=== PATIENT | female | born 1990 | race American Indian/Alaskan Native ===

== ENCOUNTER 2016-10-28 18:42 | Emergency (ER) | payer MEDICAID, OTHER ==
[2016-10-28 18:42] VITALS: BMI 24.5
[2016-10-28 18:55] VITALS: BP 113/72; PULSE 82; TEMP 98.7; O2SAT 100
--- NOTE | 2016-10-28 19:19 | C.PDOC ---
History Of Present Illness 26 y/o female c/o rash to arms, abdomen, back and left buttock x 8 days; pt sts it is itchy on arms only. pt sts no one else in home has similar rash, and she has not seen any insects in home or bed. Pt denies fever and chills. Time Seen by Provider: 10/28/16 18:59 Chief Complaint (Nursing): Abnormal Skin Integrity History Per: Patient History/Exam Limitations: no limitations Onset/Duration Of Symptoms: Days Current Symptoms Are (Timing): Still Present Quality Of Symptoms: Itching (Arms only) Severity: Mild Recent travel outside of the [place]: No Additional History Per: Patient Past Medical History Reviewed: Historical Data, Nursing Documentation, Vital Signs Vital Signs: Last Vital Signs Temp 98.7 F 10/28/16 18:52 Pulse 82 10/28/16 18:52 Resp 20 10/28/16 19:29 BP 113/72 10/28/16 18:52 Pulse Ox 100 10/29/16 00:39 - Medical History PMH: Denies: Chronic Kidney Disease - [facility] Procedures BARTHOLIN GLAND MARSUP (11/14/14) INCISE BARTHOLIN'S GLAND (11/11/14) TETANUS TOXOID ADMINIST (10/07/13) Family History: States: Unknown Family Hx - Social History Hx Tobacco Use: No Hx Alcohol Use: No Hx Substance Use: No - Immunization History Hx Tetanus Toxoid Vaccination: No Hx Influenza Vaccination: No Hx Pneumococcal Vaccination: No Review Of Systems Except As Marked, All Systems Reviewed And Found Negative. Constitutional: Negative for: Fever, Chills Skin: Positive for: Rash (Arms, abdomen, back, and left buttock) Physical Exam - Physical Exam Appears: Non-toxic, No Acute Distress Skin: Normal Color, Warm, Dry, Rash (diffuse scattered papules, some with umbilicated centers to anterior arms, bilaterally, lower abdomen, right buttock , many papyules have been excoriated, with scars, no surrounding erythema or warmth. ) Nose: Normal Oral Mucosa: Moist Tongue: Normal Appearing Chest: Symmetrical, No Tenderness Cardiovascular: Rhythm Regular, No Murmur Respiratory: Normal Breath Sounds, No Rales, No Rhonchi, No Wheezing Gastrointestinal/Abdominal: Soft, No Tenderness Neurological/Psych: Oriented x3, Normal Speech, Normal Cognition ED Course And Treatment O2 Sat by Pulse Oximetry: 100 (RA) Pulse Ox Interpretation: Normal Medical Decision Making Medical Decision Making: Impression: 26y/o female c/o rash to the arms, abdomen, back, and left buttock for 8 days Plans: -Reassess and disposition Disposition - Disposition Referrals: [facility] [Outside] Disposition: HOME/ ROUTINE Disposition Time: 19:19 Condition: STABLE Additional Instructions: Follow up with your primary care doctor and with a music education adjunct professor. Call [facility] for help finding a music education adjunct professor. Try to avoid scratching at lesions and then touching self elsewhere; this can cause new bumps to appear. .Return to ER for any worsening symptoms. Instructions: Molluscum Contagiosum (ED) Forms: General Discharge Instructions - Clinical Impression Clinical Impression: Mollusca contagiosa - Scribe Statement The provider has reviewed the documentation as recorded by the Nicolaibjarod carrera All medical record entries made by the Nicolaibjarod were at my direction and personally dictated by me. I have reviewed the chart and agree that the record accurately reflects my personal performance of the history, physical exam, medical decision making, and the department course for this patient. I have also personally directed, reviewed, and agree with the discharge instructions and disposition.
[2016-10-28 19:30] VITALS: RESP 20
== END 2016-10-28 19:29 | disposition home or self-care (01) ==
LOC: C.ER 18:42
DX: B08.1 Molluscum contagiosum (principal)

== ENCOUNTER 2017-01-09 13:54 | Emergency (ER) | payer MEDICAID ==
[2017-01-09 14:08] VITALS: BMI 26.6
[2017-01-09 14:13] VITALS: BP 110/72; PULSE 94; RESP 17; TEMP 98.3; O2SAT 99
[2017-01-09] MEDS ORDERED: Tetracaine 0.5% Ophth (OR ONLY) ONE (14:30)
[2017-01-09] MEDS ORDERED: Fluorescein 1 mg Ophthalmic Strip ONE (14:30)
[2017-01-09] MEDS ORDERED: Fluorescein 1 mg Ophthalmic Strip OS ONE (15:11)
[2017-01-09] MEDS ORDERED: Tetracaine 0.5% Ophth 2 ML BOTTLE OS ONE (15:12)
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
== END 2017-01-09 15:52 | disposition home or self-care (01) ==
LOC: C.ER 13:54
DX: S05.02XA Injury of conjunctiva and corneal abrasion without foreign body, left eye, initial encounter (principal); Y04.0XXA Assault by unarmed brawl or fight, initial encounter

== ENCOUNTER 2017-08-25 17:02 | Emergency (ER) | payer MEDICAID, OTHER ==
[2017-08-25 17:16] VITALS: TEMP 98.3; BMI 30.1
--- NOTE | 2017-08-25 17:54 | C.PDOC ---
History Of Present Illness 27yo female, presents to ED with complaints of left buttock and thigh pain for the past week. Pt notes " I pulled my hamstring". She reports she was dancing when she first felt the pain. Patient took Ibuprofen once when the symptoms started but has not taken anything since. She denies any direct trauma, weakness , numbness. She also denies any bowel or bladder dysfunction. Denies lower leg pain or swelling. No sob. Time Seen by Provider: 08/25/17 17:26 Chief Complaint (Nursing): Lower Extremity Problem/Injury History Per: Patient History/Exam Limitations: no limitations Onset/Duration Of Symptoms: Days Current Symptoms Are (Timing): Still Present Past Medical History Reviewed: Historical Data, Nursing Documentation, Vital Signs Vital Signs: Last Vital Signs Temp 98.3 F 08/25/17 17:16 Pulse 84 08/25/17 18:12 Resp 18 08/25/17 18:12 BP 125/82 08/25/17 18:12 Pulse Ox 100 08/25/17 18:18 - Medical History PMH: No Chronic Diseases Denies: Chronic Kidney Disease Surgical History: No Surg Hx - [facility] Procedures BARTHOLIN GLAND MARSUP (11/14/14) INCISE BARTHOLIN'S GLAND (11/11/14) TETANUS TOXOID ADMINIST (10/07/13) Family History: States: Unknown Family Hx - Social History Hx Tobacco Use: No Hx Alcohol Use: No Hx Substance Use: No - Immunization History Hx Tetanus Toxoid Vaccination: No Hx Influenza Vaccination: No Hx Pneumococcal Vaccination: No Review Of Systems Except As Marked, All Systems Reviewed And Found Negative. Musculoskeletal: Positive for: Back Pain Neurological: Negative for: Weakness, Numbness Physical Exam - Physical Exam Appears: Non-toxic, No Acute Distress Skin: Normal Color, Warm, Dry Head: Normacephalic Eye(s): bilateral: Normal Inspection, EOMI Nose: Normal Oral Mucosa: Moist Neck: Normal ROM, Supple Chest: Symmetrical Respiratory: No Accessory Muscle Use Gastrointestinal/Abdominal: Soft, No Tenderness Back: No CVA Tenderness, No Vertebral Tenderness, Other (tenderness to left buttock) Extremity: Normal ROM, Tenderness (tenderness to left posterior thigh), No Pedal Edema, No Calf Tenderness Pulses: Left Dorsalis Pedis: Normal, Right Dorsalis Pedis: Normal Neurological/Psych: Oriented x3, Normal Motor, Normal Sensation Gait: Steady ED Course And Treatment O2 Sat by Pulse Oximetry: 100 (RA) Pulse Ox Interpretation: Normal Progress Note: Patient given Flexeril and Toradol with improvement of pain. Patient given instructions to follow up with PCP. Disposition - Disposition Disposition: HOME/ ROUTINE Disposition Time: 18:02 Condition: STABLE Additional Instructions: Follow up with your primary medical doctor or clinic in 2-5 days for further evaluation. Take medications as prescribed. Return to the emergency department at any time if symptoms persist or worsen. Prescriptions: Cyclobenzaprine [Cyclobenzaprine HCl] 10 mg PO TID #20 tab Naproxen [Naprosyn] 1 tab PO BID PRN #20 tab PRN Reason: Pain Instructions: Muscle Strain Forms: [employer] (Beninese) - Clinical Impression Clinical Impression: Muscle strain - PA / SHOEMAKER APPRENTICE / Resident Statement MD/DO has reviewed & agrees with the documentation as recorded. - Scribe Statement The provider has reviewed the documentation as recorded by the Scribe (Kendra Duncan) Provider Scribe Attestation: All medical record entries made by the Scribe were at my direction and personally dictated by me. I have reviewed the chart and agree that the record accurately reflects my personal performance of the history, physical exam, medical decision making, and the department course for this patient. I have also personally directed, reviewed, and agree with the discharge instructions and disposition.
[2017-08-25 18:13] VITALS: BP 125/82; PULSE 84; RESP 18
[2017-08-25 18:17] VITALS: O2SAT 100
== END 2017-08-25 18:13 | disposition home or self-care (01) ==
LOC: C.ER 17:02
DX: S76.912A Strain of unspecified muscles, fascia and tendons at thigh level, left thigh, initial encounter (principal); X50.0XXA Overexertion from strenuous movement or load, initial encounter; Y92.9 Unspecified place or not applicable
CPT/HCPCS: 96372; 99283; J1885

== ENCOUNTER 2018-03-06 19:33 | Emergency (ER) | payer SELFPAY ==
[2018-03-06 19:34] VITALS: BMI 30.1
[2018-03-06 19:54] VITALS: BP 119/76; PULSE 82; RESP 16; TEMP 98.9; O2SAT 98
[2018-03-06 20:13] LABS: SQUAMOUS EPITHIAL < 1 /hpf (0-5); URINE BACTERIA OCC (<OCC); URINE BILIRUBIN NEGATIVE (NEGATIVE); URINE BLOOD 1+ (NEGATIVE); URINE CLARITY Hazy (Clear); URINE COLOR Yellow (YELLOW); URINE GLUCOSE (UA) NORMAL (Normal); URINE LEUKOCYTE ESTERASE 3+ Leu/uL (Negative); URINE PROTEIN 2+ mg/dL (NEGATIVE); URINE UROBILINOGEN NORMAL mg/dL (0.2-1.0); WBC CLUMPS FEW /hpf
--- NOTE | 2018-03-06 20:34 | C.PDOC ---
History Of Present Illness 28 yo female c/o urinary frequency for one week. Denies dysuria, back pain, vaginal discharge, abdominal pain, fever, or n/v. Pt notes that she is on her menses. Verbalizes no concern for STDs. Time Seen by Provider: 03/06/18 20:13 Chief Complaint (Nursing): Female Genitourinary History Per: Patient History/Exam Limitations: no limitations Onset/Duration Of Symptoms: Days Current Symptoms Are (Timing): Still Present Past Medical History Vital Signs: Last Vital Signs Temp 98.9 F 03/06/18 19:51 Pulse 82 03/06/18 19:51 Resp 16 03/06/18 19:51 BP 119/76 03/06/18 19:51 Pulse Ox 98 03/06/18 19:51 - Medical History PMH: Denies: Chronic Kidney Disease - [facility] Procedures BARTHOLIN GLAND MARSUP (11/14/14) INCISE BARTHOLIN'S GLAND (11/11/14) TETANUS TOXOID ADMINIST (10/07/13) Family History: States: Unknown Family Hx - Social History Hx Tobacco Use: No Hx Alcohol Use: No Hx Substance Use: No - Immunization History Hx Tetanus Toxoid Vaccination: No Hx Influenza Vaccination: No Hx Pneumococcal Vaccination: No Review Of Systems Except As Marked, All Systems Reviewed And Found Negative. Genitourinary: Positive for: Frequency Physical Exam - Physical Exam Appears: Well, Non-toxic, No Acute Distress Skin: Normal Color, Warm, Dry Head: Atraumatic, Normacephalic Eye(s): bilateral: Normal Inspection, EOMI Nose: Normal Oral Mucosa: Moist Neck: Normal, Normal ROM, Supple Chest: Symmetrical Respiratory: No Accessory Muscle Use Gastrointestinal/Abdominal: Normal Exam, Soft, No Tenderness Back: Normal Inspection, No CVA Tenderness, No Vertebral Tenderness Extremity: Normal ROM Neurological/Psych: Oriented x3, Normal Speech ED Course And Treatment O2 Sat by Pulse Oximetry: 98 Progress Note: UA indicated UTI. Macrobid ordered. Urine culture sent. Instructed to follow up with the PMD in 1-2 days. Disposition - Disposition Disposition: HOME/ ROUTINE Disposition Time: 20:33 Condition: STABLE Additional Instructions: Follow with your GRADUATE STUDENT in 1-2 days. Return to ER if symptoms persist or worsen. Prescriptions: Nitrofurantoin Macrocrystals [Macrobid] 1 cap PO BID #14 cap Instructions: Urinary Tract Infection, Adult (DC) Forms: [employer] (Latvian) - Clinical Impression Clinical Impression: UTI (lower urinary tract infection)
== END 2018-03-06 21:09 | disposition home or self-care (01) ==
LOC: C.ER 19:33
DX: N39.0 Urinary tract infection, site not specified (principal)

== ENCOUNTER 2018-06-25 17:45 | Inpatient (IN) | payer SELFPAY ==
[2018-06-25 17:51] VITALS: BMI 31.1
--- NOTE | 2018-06-25 18:02 | C.PDOC ---
History Of Present Illness 28 year old female presents to the emergency department with complaints of abdominal pain today, associated with nausea and vomiting. She denies diarrhea, fever, chills, and offers no other complaints at this time. Time Seen by Provider: 06/25/18 17:59 Chief Complaint (Nursing): Abdominal Pain History Per: Patient History/Exam Limitations: no limitations Onset/Duration Of Symptoms: Hrs Current Symptoms Are (Timing): Still Present Location Of Pain/Discomfort: Other (abdomen) Quality Of Discomfort: "Pain" Associated Symptoms: Nausea, Vomiting. denies: Fever, Chills, Diarrhea Past Medical History Reviewed: Historical Data, Nursing Documentation, Vital Signs Vital Signs: Last Vital Signs Temp 98.2 F 06/25/18 17:51 Pulse 82 06/25/18 17:51 Resp 18 06/25/18 17:51 BP 123/84 06/25/18 17:51 Pulse Ox 100 06/25/18 17:51 - Medical History PMH: No Chronic Diseases Denies: Chronic Kidney Disease Surgical History: No Surg Hx - [facility] Procedures BARTHOLIN GLAND MARSUP (11/14/14) INCISE BARTHOLIN'S GLAND (11/11/14) TETANUS TOXOID ADMINIST (10/07/13) Family History: States: No Known Family Hx - Social History Hx Tobacco Use: No Hx Alcohol Use: No Hx Substance Use: No - Immunization History Hx Tetanus Toxoid Vaccination: No Hx Influenza Vaccination: No Hx Pneumococcal Vaccination: No Review Of Systems Except As Marked, All Systems Reviewed And Found Negative. Constitutional: Negative for: Fever, Chills Gastrointestinal: Positive for: Nausea, Vomiting, Abdominal Pain. Negative for: Diarrhea Genitourinary: Negative for: Dysuria, Frequency, Incontinence Physical Exam - Physical Exam Appears: Non-toxic, No Acute Distress Skin: Normal Color, Warm, Dry Head: Atraumatic, Normacephalic Eye(s): bilateral: Normal Inspection, PERRL, EOMI Oral Mucosa: Moist Neck: Normal, Supple Chest: Symmetrical, No Tenderness Cardiovascular: Rhythm Regular, No Murmur Respiratory: Normal Breath Sounds, No Rales, No Rhonchi, No Wheezing Gastrointestinal/Abdominal: Soft, Tenderness (RLQ), No Guarding, No Rebound Neurological/Psych: Oriented x3, Normal Speech, Normal Cognition ED Course And Treatment - Laboratory Results Result Diagrams: 06/25/18 18:38 06/25/18 18:38 O2 Sat by Pulse Oximetry: 100 (RA) Pulse Ox Interpretation: Normal - CT Scan/US CT Abdomen and Pelvis Other Rad Studies (CT/US): Read By Radiologist, Radiology Report Reviewed CT/US Interpretation: IMPRESSION: 1. Evidence of acute appendicitis with multiple associated appendicoliths as described above. Surgical evaluation is recommended. 2. A very small hiatal hernia is identified. 3. Small upper midline supra umbilical ventral hernia and small umbilical hernia which each contain fat. Disposition - Disposition Disposition: HOSPITALIZED Disposition Time: 21:33 Condition: STABLE Forms: [employer] (Sierra Leonean) - Clinical Impression Clinical Impression: Appendicitis Decision To Admit - Pt Status Changed To: Hospital Disposition Of: Inpatient - Admit Certification Admit to Inpatient:: After my assessment, the patient will require hospitalization for at least two midnights. This is because of the severity of symptoms shown, intensity of services needed, and/or the medical risk in this patient being treated as an outpatient. - InPatient: Physician Admission Certification:: needs or - . Bed Request Type: Regular Admitting Physician: Von Sutherland Patient Diagnosis: Appendicitis
[2018-06-25] MEDS ORDERED: Sodium Chloride 0.9% 1,000 ML IV ONE (18:03)
[2018-06-25] MEDS ORDERED: Sodium Chloride 0.9% 1,000 ML ONE (18:17)
[2018-06-25 18:36] LABS: SQUAMOUS EPITHIAL 9 /hpf (0-5); URINE BACTERIA RARE (<OCC); URINE BILIRUBIN NEGATIVE (NEGATIVE); URINE BLOOD NEGATIVE (NEGATIVE); URINE CLARITY Hazy (Clear); URINE COLOR Yellow (YELLOW); URINE GLUCOSE (UA) NORMAL (Normal); URINE LEUKOCYTE ESTERASE NEG Leu/uL (Negative); URINE PROTEIN 1+ mg/dL (NEGATIVE)
[2018-06-25 18:48] LABS: BASO # 0.1 K/uL (0.0-0.2); BASO % 0.8 % (0.0-2.0); EOS # 0.1 K/uL (0.0-0.7); EOS % 0.7 % (0.0-4.0); HEMOGLOBIN 11.8 g/dL (11.0-16.0); LYMPH # 1.5 K/uL (1.0-4.3); LYMPH % 13.5 % (20.0-40.0); MEAN CELL VOLUME 72.2 fL (81.0-99.0); MEAN CORPUSCULAR HEMOGLOBIN 22.9 pg (27.0-31.0); MEAN CORPUSCULAR HGB CONC 31.7 g/dL (33.0-37.0); MEAN PLATELET VOLUME 8.4 fL (7.2-11.7); MONO # 0.7 K/uL (0.0-0.8); MONO % 5.9 % (0.0-10.0); NEUT # 8.8 K/uL (1.8-7.0); NEUT % 79.1 % (50.0-75.0); RBC 5.14 Mil/uL (3.80-5.20); RED CELL DISTRIBUTION WIDTH 14.7 % (11.5-14.5); WHITE BLOOD COUNT 11.2 K/uL (4.8-10.8)
[2018-06-25 18:56] LABS: INR 1.1; PROTHROMBIN TIME 12.1 SECONDS (9.7-12.2)
[2018-06-25 18:58] LABS: ALB/GLOB RATIO 1.3 (1.0-2.1); ALBUMIN 4.6 g/dL (3.5-5.0); ALT/SGPT 12 U/L (9-52); AST/SGOT 24 U/L (14-36); BILIRUBIN,DIRECT 0.4 mg/dL (0.0-0.4); BLOOD UREA NITROGEN 9 mg/dL (7-17); CALCIUM 8.8 mg/dl (8.6-10.4); GFR NON-AFRICAN AMERICAN > 60; LIPASE 30 U/L (23-300)
[2018-06-25] MEDS ORDERED: Iodixanol 320 MG/ML 100 ML BOTTLE IV ONE (19:51)
[2018-06-25] MEDS ORDERED: Piperacillin/Tazobact 3.375 GM in Sodium Chloride 100 ML IVPB SCH (21:00)
[2018-06-25] MEDS ORDERED: Piperacillin/Tazobact 3.375 gm 100 ML IVPB ONE (21:03)
--- NOTE | 2018-06-25 21:36 | CP.PCM.HP ---
History of Present Illness - History of Present Illness History of Present Illness: General Surgery H&P Re: acute appendicitis HPI: 28F presented to ED with abdominal pain in the RLQ. Pain began this morning around her umbilicus and migrated to her RLQ. Associated with nausea and several episodes of NBNB emesis. Pain got to 7/10 so she came in to ED. She has never had this type of pain before. Last BM yesterday was normal. No other complaints. Denies Fever, chills, chest pain, SOB, dysuria, hematuria, melena, hematochezia. Currently pain is 3/10 after pain meds. PMH: Denies PSH: , D&C, bartholin's cyst SH: No tobacco or drug use. Occasional EtOH. 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 FH: Noncontributory All: NKDA Meds: Denies Present on Admission - Present on Admission Any Indicators Present on Admission: No Review of Systems - Review of Systems All systems: reviewed and no additional remarkable complaints except (as per HPI) Past Patient History - Past Social History Smoking Status: Never Smoked - CARDIAC Hx Cardiac Disorders: No - PULMONARY Hx Respiratory Disorders: No - NEUROLOGICAL Hx Neurological Disorder: No - HEENT Hx HEENT Problems: No - RENAL Hx Chronic Kidney Disease: No - ENDOCRINE/METABOLIC Hx Endocrine Disorders: No - HEMATOLOGICAL/ONCOLOGICAL Hx Blood Disorders: No - INTEGUMENTARY Hx Dermatological Problems: No Other/Comment: Bartholin's cyst - MUSCULOSKELETAL/RHEUMATOLOGICAL Hx Musculoskeletal Disorders: No - GASTROINTESTINAL Hx Gastrointestinal Disorders: No - PSYCHIATRIC Hx Substance Use: No - SURGICAL HISTORY Hx Surgeries: Yes Hx Section: Yes (x1) Other/Comment: LABIAL SURGERY /2013. PER PATIENT - ANESTHESIA Hx Anesthesia: Yes Meds Allergies/Adverse Reactions: Allergies Allergy/AdvReac Type Severity Reaction Status Date / Time No Known Allergies Allergy Verified 06/25/18 17:50 Physical Exam - Constitutional Appears: Non-toxic, No Acute Distress - Head Exam Head Exam: ATRAUMATIC, NORMOCEPHALIC - Eye Exam Eye Exam: EOMI. absent: Scleral icterus - ENT Exam ENT Exam: Mucous Membranes Dry Additional comments: trachea midline - Neck Exam Neck exam: Positive for: Full Rom. Negative for: Tenderness - Respiratory Exam Respiratory Exam: NORMAL BREATHING PATTERN. absent: Respiratory Distress - Cardiovascular Exam Cardiovascular Exam: RRR. absent: Bradycardia, Tachycardia - GI/Abdominal Exam GI & Abdominal Exam: Hernia (umbilical), Soft, Tenderness (over mcburneys point). absent: Distended, Firm, Guarding, Rebound, Rigid Additional comments: well healed scar - Rectal Exam Rectal Exam: Deferred - Extremities Exam Extremities exam: Positive for: normal capillary refill, pedal pulses present. Negative for: calf tenderness - Back Exam Back exam: absent: CVA tenderness (L), CVA tenderness (R) - Neurological Exam Neurological exam: Alert, Oriented x3 - Skin Skin Exam: Dry, Warm Results - Vital Signs Recent Vital Signs: Last Vital Signs Temp 98.7 F 06/25/18 20:35 Pulse 75 06/25/18 20:35 Resp 16 06/25/18 20:35 BP 136/80 06/25/18 20:35 Pulse Ox 100 06/25/18 21:04 - Labs Result Diagrams: 06/25/18 18:38 06/25/18 18:38 Labs: Laboratory Results - last 24 hr 06/25/18 06/25/18 06/25/18 18:28 18:28 18:38 WBC 11.2 H RBC 5.14 Hgb 11.8 Hct 37.1 MCV 72.2 L MCH 22.9 L MCHC 31.7 L RDW 14.7 H Plt Count 345 MPV 8.4 Neut % (Auto) 79.1 H Lymph % (Auto) 13.5 L Owen % (Auto) 5.9 Eos % (Auto) 0.7 Baso % (Auto) 0.8 Neut # (Auto) 8.8 H Lymph # (Auto) 1.5 Owen # (Auto) 0.7 Eos # (Auto) 0.1 Baso # (Auto) 0.1 PT INR APTT Sodium Potassium Chloride Carbon Dioxide Anion Gap BUN Creatinine Est GFR ( Amer) Est GFR (Non-Af Amer) Random Glucose Calcium Total Bilirubin Direct Bilirubin AST ALT Alkaline Phosphatase Total Protein Albumin Globulin Albumin/Globulin Ratio Lipase Beta HCG, Quant Urine Color Yellow Urine Clarity Hazy Urine pH 7.0 Ur Specific [place] 1.027 Urine Protein 1+ H Urine Glucose (UA) Normal Urine Ketones Trace Urine Blood Negative Urine Nitrate Negative Urine Bilirubin Negative Urine Urobilinogen 2.0 H Ur Leukocyte Esterase Neg Urine WBC (Auto) 2 Urine RBC (Auto) 1 Ur Squamous Epith Cells 9 H Urine Bacteria Rare Urine HCG, Qual Negative 06/25/18 06/25/18 06/25/18 18:38 18:38 18:38 WBC RBC Hgb Hct MCV MCH MCHC RDW Plt Count MPV Neut % (Auto) Lymph % (Auto) Owen % (Auto) Eos % (Auto) Baso % (Auto) Neut # (Auto) Lymph # (Auto) Owen # (Auto) Eos # (Auto) Baso # (Auto) PT 12.1 INR 1.1 APTT 31 Sodium 138 Potassium 3.7 Chloride 101 Carbon Dioxide 28 Anion Gap 13 BUN 9 Creatinine 0.6 L Est GFR ( Amer) > 60 Est GFR (Non-Af Amer) > 60 Random Glucose 89 D Calcium 8.8 Total Bilirubin 0.5 Direct Bilirubin 0.4 AST 24 ALT 12 Alkaline Phosphatase 131 H Total Protein 8.1 Albumin 4.6 Globulin 3.5 Albumin/Globulin Ratio 1.3 Lipase 30 Beta HCG, Quant < 2.39 Urine Color Urine Clarity Urine pH Ur Specific [place] Urine Protein Urine Glucose (UA) Urine Ketones Urine Blood Urine Nitrate Urine Bilirubin Urine Urobilinogen Ur Leukocyte Esterase Urine WBC (Auto) Urine RBC (Auto) Ur Squamous Epith Cells Urine Bacteria Urine HCG, Qual - Imaging and Cardiology CT scan - abdomen Status: Image reviewed by me Assessment & Plan - Assessment and Plan (Free Text) Assessment: 28F with acute appendicitis, appendicoliths Plan: NPO IVF Zosyn Zofran Analgesia Consent in chart OR 06/26/18 in AM D/W Dr. Ena Hannon PGY4
[2018-06-25] MEDS: Sodium Chloride 0.9% 1,000 ML IV SCH (22:30)
[2018-06-25] MEDS: Piperacillin/Tazobact 3.375 GM in Sodium Chloride 0.9% 100 ML IVPB SCH (23:28)
[2018-06-26] MEDS: Morphine 4 MG/ML VIAL IVP PRN ×3 (02:11→12:20)
[2018-06-26] MEDS ORDERED: Morphine 4 MG/ML VIAL ONE ×2 (02:11→06:30)
[2018-06-26] MEDS: Piperacillin/Tazobact 3.375 GM in Sodium Chloride 0.9% 100 ML IVPB SCH ×4 (04:58→21:53)
[2018-06-26] MEDS ORDERED: Piperacillin/Tazobact 3.375 gm 100 ML IVPB ONE ×2 (05:02→16:33)
[2018-06-26 05:21] LABS: BASO # 0.1 K/uL (0.0-0.2); BASO % 0.7 % (0.0-2.0); EOS % 0.1 % (0.0-4.0); LYMPH % 8.1 % (20.0-40.0); MEAN CELL VOLUME 73.1 fL (81.0-99.0); MEAN CORPUSCULAR HEMOGLOBIN 22.7 pg (27.0-31.0); MEAN CORPUSCULAR HGB CONC 31.1 g/dL (33.0-37.0); MEAN PLATELET VOLUME 8.7 fL (7.2-11.7); MONO # 0.6 K/uL (0.0-0.8); MONO % 4.8 % (0.0-10.0); NEUT % 86.3 % (50.0-75.0); PLATELET COUNT 314 K/uL (130-400); RBC 4.85 Mil/uL (3.80-5.20); RED CELL DISTRIBUTION WIDTH 14.6 % (11.5-14.5); WHITE BLOOD COUNT 12.8 K/uL (4.8-10.8)
[2018-06-26 05:37] LABS: BLOOD UREA NITROGEN 7 mg/dL (7-17); CALCIUM 8.3 mg/dl (8.6-10.4); GFR NON-AFRICAN AMERICAN > 60
[2018-06-26 06:31] LABS: ANISOCYTOSIS SLIGHT; LYMPHOCYTE 5 % (20-40); MICROCYTOSIS SLIGHT; MONOCYTE 6 % (0-10); NEUTROPHIL 87 % (50-75); PLATELET ESTIMATE NORMAL (NORMAL); REACTIVE LYMPHOCYTES 2 % (0-0); TOTAL CELLS COUNTED 100
[2018-06-26] MEDS: Sodium Chloride 0.9% 1,000 ML IV SCH ×3 (07:09→21:29)
[2018-06-26] MEDS ORDERED: Pneumococcal 23-Valent Vaccine IM ONE (09:05)
--- NOTE | 2018-06-26 10:23 | CT ---
Date of service: 06/25/2018 PROCEDURE: CT Abdomen and Pelvis HISTORY: Right lower quadrant COMPARISON: None. TECHNIQUE: Contiguous axial images of the abdomen and pelvis performed following intravenous injection of approximately 100 cc Visipaque 320 contrast material. Additional 2D sagittal and coronal reformats generated. Radiation dose: Total exam DLP = 549.08 mGy-cm. This CT exam was performed using one or more of the following dose reduction techniques: Automated exposure control, adjustment of the mA and/or kV according to patient size, and/or use of iterative reconstruction technique. FINDINGS: LOWER THORAX: Heart size normal. No significant pericardial effusion. Small hiatal hernia with small amount of fluid in the distal esophagus likely due to reflux. The the. LIVER: Liver exhibits normal size. Mild fatty hepatic infiltration. No significant intrahepatic biliary ductal dilatation. GALLBLADDER AND BILE DUCTS: Unremarkable. PANCREAS: Unremarkable. No mass. No ductal dilatation. SPLEEN: Unremarkable. No splenomegaly. ADRENALS: Unremarkable. KIDNEYS AND URETERS: Unremarkable. No stone or hydronephrosis. BLADDER: Urinary bladder is incompletely distended which in part accounts for thick-walled appearance. Correlation with urinalysis recommended to exclude cystitis. REPRODUCTIVE: Unremarkable. APPENDIX: The appendix is dilated with peripheral enhancement and internal appendicoliths. Findings consistent with acute appendicitis. Mild peripancreatic attic infiltration and small amount of peripancreatic fluid is present. Rule out micro perforation. BOWEL: Unremarkable. No obstruction. No gross mural thickening. PERITONEUM: Unremarkable. No fluid collection. No free intraperitoneal air. There is a small fat containing umbilical hernia and a smaller fat containing ventral wall hernia slightly more superiorly located. LYMPH NODES: Unremarkable. No enlarged lymph nodes. VASCULATURE: Unremarkable. No aortic aneurysm. No aortic atherosclerotic calcification or mural plaque present. BONES: No fracture or destructive lesion. OTHER FINDINGS: None. IMPRESSION: Findings consistent with acute appendicitis; rule out micro perforation as above. Mild fatty hepatic infiltration.. There are small fat containing periumbilical and ventral wall hernias.
--- NOTE | 2018-06-26 11:36 | RAD ---
Date of service: 06/25/2018 HISTORY: abd pain COMPARISON: No prior. FINDINGS: LUNGS: No active pulmonary disease. PLEURA: No significant pleural effusion identified, no pneumothorax apparent. CARDIOVASCULAR: No aortic atherosclerotic calcification present. Normal cardiac size. No pulmonary vascular congestion. OSSEOUS STRUCTURES: No significant abnormalities. VISUALIZED UPPER ABDOMEN: Normal. OTHER FINDINGS: None. IMPRESSION: No active disease.
[2018-06-26] MEDS ORDERED: Midazolam 2 MG/2 ML VIAL ONE (14:07)
[2018-06-26] MEDS ORDERED: Propofol 10 mg/ml Inj (20 ML) ONE (14:08)
[2018-06-26] MEDS ORDERED: Bupivacaine-Epi 0.5%-1:200,000 PF Inj ONE (14:21)
[2018-06-26] MEDS ORDERED: Neostigmine 1:1000 (1 mg/ml) Inj ONE (15:01)
[2018-06-26] MEDS: HYDROmorphone 0.5 mg/0.5 ml ISec IVP PRN ×3 (16:10→16:58)
--- NOTE | 2018-06-26 16:28 | PCM.SURG1 ---
Surgeon's Initial Post Op Note - Surgeon's Notes Surgeon: Dr. Sutherland Vessel Scrapper: Dr. Harvey PGY-3, Alka Parmar MS3 Type of Anesthesia: General Endo Pre-Operative Diagnosis: Acute Appendicitis Operative Findings: See operative report Post-Operative Diagnosis: Same Operation Performed: Laparoscopic Appendectomy Specimen/Specimens Removed: appendix Estimated Blood Loss: EBL {In ML}: 20 Blood Products Given: N/A Drains Used: Candido Post-Op Condition: Good Date of Surgery/Procedure: 06/26/18 Time of Surgery/Procedure: 16:28
[2018-06-26 17:33] VITALS: RESP 20
[2018-06-26 18:05] LABS: HEPATITIS B SURFACE AG Negative (NEGATIVE)
[2018-06-26 18:11] LABS: HEPATITIS A IGM NEGATIVE (NEGATIVE); HEPATITIS B CORE AB NEGATIVE (NEGATIVE)
[2018-06-26] MEDS: Oxycodone/Acetaminophen 5/325 mg Tab PO PRN (18:19)
[2018-06-26 18:23] LABS: HEPATITIS C ANTIBODY NEGATIVE (NEGATIVE)
[2018-06-27] MEDS: Oxycodone/Acetaminophen 5/325 mg Tab PO PRN ×2 (01:21→19:00)
[2018-06-27] MEDS: Sodium Chloride 0.9% 1,000 ML IV SCH ×2 (01:30→05:59)
[2018-06-27] MEDS: Piperacillin/Tazobact 3.375 GM in Sodium Chloride 0.9% 100 ML IVPB SCH ×4 (03:12→21:33)
[2018-06-27] MEDS: Morphine 4 MG/ML VIAL IVP PRN ×3 (05:55→14:26)
[2018-06-27 08:37] LABS: HEMOGLOBIN 10.8 g/dL (11.0-16.0); MEAN CORPUSCULAR HEMOGLOBIN 23.1 pg (27.0-31.0); MEAN CORPUSCULAR HGB CONC 31.3 g/dL (33.0-37.0); MEAN PLATELET VOLUME 8.9 fL (7.2-11.7); RBC 4.69 Mil/uL (3.80-5.20); RED CELL DISTRIBUTION WIDTH 14.6 % (11.5-14.5); WHITE BLOOD COUNT 12.4 K/uL (4.8-10.8)
--- NOTE | 2018-06-27 08:52 | CP.PCM.PN ---
Subjective - Date & Time of Evaluation Date of Evaluation: 06/27/18 Time of Evaluation: 08:50 - Subjective Subjective: Surgery: Dr. Sutherland Pt seen and examined. No acute overnight events. Pt admits to post op pain around the incision sites. Denies nausea/vomiting, fevers/chills. Objective - Vital Signs/Intake and Output Vital Signs (last 24 hours): Temp Pulse Resp BP Pulse Ox 99.3 F 95 H 20 125/74 98 06/27/18 08:00 06/27/18 08:00 06/27/18 08:00 06/27/18 08:00 06/27/18 08:00 Intake and Output: 06/27/18 06/27/18 06:59 18:59 Intake Total 550 1000 Output Total 25 10 Balance 525 990 - Medications Medications: Current Medications Piperacillin Sod/Tazobactam (Sod 3.375 gm/ Sodium Chloride) 100 mls @ 200 mls/hr IVPB Q6H [facility]; Protocol Last Admin: 06/27/18 03:12 Dose: 200 mls/hr Influenza Virus Vaccine (Flucelvax Quad [id number] Syr) 60 mcg IM .ONCE ONE Stop: 06/28/18 10:01 Morphine Sulfate (Morphine) 4 mg IVP Q4 PRN PRN Reason: Pain, moderate (4-7) Last Admin: 06/27/18 05:55 Dose: 4 mg Ondansetron HCl (Zofran Inj) 4 mg IVP Q4H PRN PRN Reason: Nausea/Vomiting Last Admin: 06/27/18 07:50 Dose: 4 mg Oxycodone/Acetaminophen (Percocet 5/325 Mg Tab) 1 tab PO Q4H PRN PRN Reason: Pain, moderate (4-7) Stop: 06/29/18 16:17 Last Admin: 06/27/18 01:21 Dose: 1 tab Pneumococcal Polyvalent Vaccine (Pneumovax 23 Vaccine) 0.5 ml IM .ONCE ONE Stop: 06/28/18 10:01 Potassium Chloride (K-Dur 20 Meq Er Tab) 20 meq PO ONCE ONE Stop: 06/27/18 08:47 - Labs Labs: 06/27/18 08:10 06/26/18 05:15 PT 12.1 SECONDS (9.7-12.2) 01/18/19 18:38 INR 1.1 06/25/18 18:38 APTT 31 SECONDS (21-34) 06/25/18 18:38 - Constitutional Appears: Well, No Acute Distress - Head Exam Head Exam: ATRAUMATIC, NORMOCEPHALIC - Eye Exam Eye Exam: Normal appearance - ENT Exam ENT Exam: Mucous Membranes Moist - Respiratory Exam Respiratory Exam: NORMAL BREATHING PATTERN - Cardiovascular Exam Cardiovascular Exam: RRR - GI/Abdominal Exam GI & Abdominal Exam: Distended, Soft, Tenderness (around the incision sites; dressings C/D/I. Candido drain with 30cc seropurulent output ). absent: Rebound - Neurological Exam Neurological Exam: Alert, Awake, Oriented x3 - Skin Skin Exam: Dry, Warm Assessment and Plan - Assessment and Plan (Free Text) Assessment: 28F s/p lap appendectomy & umbilical hernia repair; POD#1 Plan: - cont IV ABX - cont to monitor drain output - CLD; will advance slowly as tolerated - encourage ambulation & incentive spirometer - d/w Dr. Ena Harvey
[2018-06-27 08:54] LABS: BLOOD UREA NITROGEN 4 mg/dL (7-17); GFR NON-AFRICAN AMERICAN > 60
[2018-06-27] MEDS ORDERED: Potassium Chloride 20 mEq ER Tab PO ONE (09:00)
[2018-06-28] MEDS: Oxycodone/Acetaminophen 5/325 mg Tab PO PRN (03:16)
[2018-06-28] MEDS: Piperacillin/Tazobact 3.375 GM in Sodium Chloride 0.9% 100 ML IVPB SCH ×4 (03:17→22:20)
[2018-06-28 06:35] LABS: HEMOGLOBIN 10.7 g/dL (11.0-16.0); MEAN CELL VOLUME 73.2 fL (81.0-99.0); MEAN CORPUSCULAR HEMOGLOBIN 23.1 pg (27.0-31.0); MEAN CORPUSCULAR HGB CONC 31.6 g/dL (33.0-37.0); MEAN PLATELET VOLUME 8.8 fL (7.2-11.7); RBC 4.62 Mil/uL (3.80-5.20); RED CELL DISTRIBUTION WIDTH 14.5 % (11.5-14.5); WHITE BLOOD COUNT 11.5 K/uL (4.8-10.8)
[2018-06-28 06:51] LABS: BLOOD UREA NITROGEN 4 mg/dL (7-17); CALCIUM 7.9 mg/dl (8.6-10.4); GFR NON-AFRICAN AMERICAN > 60
[2018-06-28] MEDS ORDERED: Potassium Chloride 20 mEq ER Tab PO ONE (08:00)
[2018-06-28] MEDS: Morphine 4 MG/ML VIAL IVP PRN ×2 (08:50→14:16)
[2018-06-28] MEDS ORDERED: Influenza Vaccine 60 mcg/0.5 mL SYR (4YR UP) IM ONE (10:00)
[2018-06-28] MEDS ORDERED: Pneumococcal 23-Valent Vaccine IM ONE (10:00)
--- NOTE | 2018-06-28 15:18 | CP.PCM.PN ---
Subjective - Date & Time of Evaluation Date of Evaluation: 06/28/18 Time of Evaluation: 07:30 - Subjective Subjective: Surgery: Dr. Sutherland Pt seen and examined. No acute overnight events. States she feels better but admits to post-op pain around incision sites. Admits to tolerating regular diet. Denies nausea/vomiting, fevers/chills. Denies flatus/BM. Objective - Vital Signs/Intake and Output Vital Signs (last 24 hours): Temp Pulse Resp BP Pulse Ox 98.6 F 93 H 20 120/78 98 06/28/18 07:00 06/28/18 07:00 06/28/18 07:00 06/28/18 07:00 06/28/18 07:00 Intake and Output: 06/28/18 06/28/18 06:59 18:59 Intake Total 750 1020 Output Total 8 420 Balance 742 600 - Medications Medications: Current Medications Docusate Sodium (Colace) 100 mg PO DAILY [facility] Last Admin: 06/28/18 09:48 Dose: 100 mg Piperacillin Sod/Tazobactam (Sod 3.375 gm/ Sodium Chloride) 100 mls @ 200 mls/hr IVPB Q6H [facility]; Protocol Last Admin: 06/28/18 09:47 Dose: 200 mls/hr Morphine Sulfate (Morphine) 4 mg IVP Q4 PRN PRN Reason: Pain, moderate (4-7) Last Admin: 06/28/18 14:16 Dose: 4 mg Ondansetron HCl (Zofran Inj) 4 mg IVP Q4H PRN PRN Reason: Nausea/Vomiting Last Admin: 06/28/18 14:16 Dose: 4 mg Oxycodone/Acetaminophen (Percocet 5/325 Mg Tab) 1 tab PO Q4H PRN PRN Reason: Pain, moderate (4-7) Stop: 06/29/18 16:17 Last Admin: 06/28/18 03:16 Dose: 1 tab - Labs Labs: 06/28/18 06:25 06/28/18 06:25 PT 12.1 SECONDS (9.7-12.2) 06/25/18 18:38 INR 1.1 06/25/18 18:38 APTT 31 SECONDS (21-34) 06/25/18 18:38 - Constitutional Appears: Well, No Acute Distress - Head Exam Head Exam: ATRAUMATIC, NORMOCEPHALIC - Eye Exam Eye Exam: Normal appearance - ENT Exam ENT Exam: Mucous Membranes Moist - Respiratory Exam Respiratory Exam: NORMAL BREATHING PATTERN - Cardiovascular Exam Cardiovascular Exam: RRR - GI/Abdominal Exam GI & Abdominal Exam: Distended, Tenderness (around incision sites; dressing C/D/I. Balke in place with serosang output ). absent: Guarding - Neurological Exam Neurological Exam: Alert, Awake, Oriented x3 - Skin Skin Exam: Dry, Warm Assessment and Plan - Assessment and Plan (Free Text) Assessment: 28F s/p lap appy; POD#2 Plan: - cont ABX - encourage ambulation - monitor drain output - colace for constipation - d/w Dr. Ena Harvey
--- NOTE | 2018-06-28 19:58 | OP ---
PROCEDURE DATE: 06/26/2018 PREOPERATIVE DIAGNOSIS: Acute appendicitis. PROCEDURE PERFORMED: Laparoscopic appendectomy and umbilical hernia repair. SURGEON: Von Sutherland MD. CORRECTIONAL OFFICER LIEUTENANT: Betty Harvey DO, Sulman Mahmood, MS3. TYPE OF ANESTHESIA: General endotracheal. SPECIMEN REMOVED: Appendix, hernia sac. ESTIMATED BLOOD LOSS: 20 mL. DRAINS USED: Candido. INDICATIONS: The patient is a 28-year-old female with no significant past medical history who presented to [facility] with right lower quadrant abdominal pain. A CT scan was obtained in the ER and showed acute appendicitis. The patient was taken to the OR. DESCRIPTION OF PROCEDURE: Informed consent was obtained and the patient was brought to the operating room and placed on the table in supine position. Time-outs were performed identifying correct patient, procedure, site prior to beginning the surgery. General endotracheal anesthesia was induced and the patient was prepped and draped in usual sterile fashion. An incision was then made in a natural skin crease above the umbilicus. Incision was carried down to the fascia which was elevated and using Metzenbaum scissors, the fascia was from the umbilical skin. Entry into the peritoneum was confirmed visually and no bowel was noted in the vicinity of the incision. A 12 mm trocar was then inserted and abdomen was insufflated with [id number] to a pressure of 15 mmHg. The laparoscope was inserted and the abdomen was inspected and inflamed. Appendix adhered to the anterior abdominal wall was noted. Under direct visualization a 5 mm trocar was inserted above the pubic symphysis and below the hairline. Next another 5 mm trocar was inserted in the left lower quadrant lateral to the rectus muscle. Care was taken to avoid injury to the bladder and inferior epigastric vessels. The table was then placed in a Trendelenburg position with the right side up. Cecum was then manipulated with a grasper and the appendix was taken off the anterior abdominal wall. The appendix was then grasped with another grasper and elevated exposing several loops of small bowel adhesed to the base. Using the [place] grasper as well as hydrosuction, the small bowel loops were carefully from the base of the appendix. Once the ileocecal junction was identified, endoscopic LigaSure device was used to separate the mesoappendix. Inflammatory phlegmonous process was identified around the base of the appendix with some purulent spillage. Suction was used to dissect as well clean out the base of the appendix and once that was identified, an endoscopic linear cutting stapler was then used to divide and staple the base of the appendix. The appendix was then placed into an Endo-Catch bag and removed via the 12 mm port site. The appendiceal stump was then irrigated and hemostasis was assured. Fluid was suctioned from the right lower quadrant, pelvis as well as right upper quadrant. A close suction drain was placed in the right lower quadrant and withdrawn through the trocar site. Secondary trocars were removed under direct vision and no bleeding was noted at the trocar sites. Pneumoperitoneum was evacuated and attention was then turned to the umbilical hernia. The hernia sac was removed and interrupted PDS sutures were used to close the hernia defect primarily. A 3-0 Vicryl sutures were used to close subcutaneous tissue at the umbilical incision and skin was closed with subcuticular sutures of Monocryl and Dermabond. All counts were correct at the end of the procedure and the patient was taken to PACU in stable condition. Betty Harvey DO Von Sutherland MD
[2018-06-29] MEDS: Oxycodone/Acetaminophen 5/325 mg Tab PO PRN ×2 (01:29→15:42)
[2018-06-29] MEDS: Piperacillin/Tazobact 3.375 GM in Sodium Chloride 0.9% 100 ML IVPB SCH ×4 (04:14→22:11)
[2018-06-29 07:02] LABS: BASO % 0.4 % (0.0-2.0); EOS # 0.2 K/uL (0.0-0.7); EOS % 2.1 % (0.0-4.0); HEMOGLOBIN 10.5 g/dL (11.0-16.0); LYMPH # 1.7 K/uL (1.0-4.3); LYMPH % 17.4 % (20.0-40.0); MEAN CORPUSCULAR HGB CONC 31.1 g/dL (33.0-37.0); MEAN PLATELET VOLUME 8.5 fL (7.2-11.7); MONO # 0.9 K/uL (0.0-0.8); MONO % 9.5 % (0.0-10.0); NEUT # 6.8 K/uL (1.8-7.0); NEUT % 70.6 % (50.0-75.0); RBC 4.54 Mil/uL (3.80-5.20); RED CELL DISTRIBUTION WIDTH 14.5 % (11.5-14.5); WHITE BLOOD COUNT 9.7 K/uL (4.8-10.8)
[2018-06-29 07:20] LABS: BLOOD UREA NITROGEN 4 mg/dL (7-17); CALCIUM 7.8 mg/dl (8.6-10.4); GFR NON-AFRICAN AMERICAN > 60
[2018-06-29] MEDS ORDERED: Potassium Chloride 20 mEq ER Tab PO ONE (08:15)
--- NOTE | 2018-06-29 08:58 | CP.PCM.PN ---
Subjective - Date & Time of Evaluation Date of Evaluation: 06/29/18 Time of Evaluation: 08:55 - Subjective Subjective: Surgery: Dr. Sutherland Pt seen and examined. No acute overnight events. States she's feeling better today and abdominal pain is well controlled. She admits to tolerating regular diet. Pt admits to flatus but denies BM. Denies fevers/chills. Ambulating around the hallway. Objective - Vital Signs/Intake and Output Vital Signs (last 24 hours): Temp Pulse Resp BP Pulse Ox 98.5 F 82 20 99/61 L 99 06/29/18 07:00 06/29/18 07:00 06/29/18 07:00 06/29/18 07:00 06/29/18 07:00 Intake and Output: 06/29/18 06/29/18 06:59 18:59 Intake Total 840 Output Total 780 Balance 60 - Medications Medications: Current Medications Docusate Sodium (Colace) 100 mg PO DAILY [facility] Last Admin: 06/28/18 09:48 Dose: 100 mg Piperacillin Sod/Tazobactam (Sod 3.375 gm/ Sodium Chloride) 100 mls @ 200 mls/hr IVPB Q6H [facility]; Protocol Last Admin: 06/29/18 04:14 Dose: 200 mls/hr Potassium Chloride (Potassium Chloride 20 Meq/100 Ml) 20 meq in 100 mls @ 50 mls/hr IVPB ONCE ONE Stop: 06/29/18 10:14 Last Admin: 06/29/18 08:23 Dose: 50 mls/hr Ondansetron HCl (Zofran Inj) 4 mg IVP Q4H PRN PRN Reason: Nausea/Vomiting Last Admin: 06/28/18 14:16 Dose: 4 mg Oxycodone/Acetaminophen (Percocet 5/325 Mg Tab) 1 tab PO Q4H PRN PRN Reason: Pain, moderate (4-7) Stop: 06/29/18 16:17 Last Admin: 06/28/18 03:16 Dose: 1 tab Oxycodone/Acetaminophen (Percocet 5/325 Mg Tab) 2 tab PO Q4H PRN PRN Reason: Pain, severe (8-10) Stop: 07/01/18 18:17 Last Admin: 06/29/18 01:29 Dose: 2 tab - Labs Labs: 06/29/18 06:53 06/29/18 06:53 PT 12.1 SECONDS (9.7-12.2) 06/25/18 18:38 INR 1.1 06/25/18 18:38 APTT 31 SECONDS (21-34) 06/25/18 18:38 - Constitutional Appears: Well, No Acute Distress - Head Exam Head Exam: ATRAUMATIC, NORMOCEPHALIC - Eye Exam Eye Exam: Normal appearance - ENT Exam ENT Exam: Mucous Membranes Moist - Respiratory Exam Respiratory Exam: NORMAL BREATHING PATTERN - Cardiovascular Exam Cardiovascular Exam: RRR - GI/Abdominal Exam GI & Abdominal Exam: Soft, Tenderness (around incision sites; C/D/I. Candido drain with serous output ). absent: Guarding, Rebound - Extremities Exam Extremities Exam: Full ROM - Neurological Exam Neurological Exam: Alert, Awake, Oriented x3 - Skin Skin Exam: Dry, Warm Assessment and Plan - Assessment and Plan (Free Text) Assessment: 28F s/p lap appendectomy; POD#3 Plan: - cont IV ABx - Colace and dulcolax for constipation - encourage ambulation - monitor drain output - d/w Dr. Ena Harvey
[2018-06-29] MEDS ORDERED: POLYETHYLENE GLYCOL 3350 17 GM/Dose PACKET PO ONE (14:39)
[2018-06-30] MEDS: Piperacillin/Tazobact 3.375 GM in Sodium Chloride 0.9% 100 ML IVPB SCH ×2 (04:00→10:25)
[2018-06-30] MEDS: Oxycodone/Acetaminophen 5/325 mg Tab PO PRN (04:50)
[2018-06-30 06:17] LABS: HEMOGLOBIN 10.1 g/dL (11.0-16.0); MEAN CELL VOLUME 73.9 fL (81.0-99.0); MEAN CORPUSCULAR HEMOGLOBIN 23.4 pg (27.0-31.0); MEAN CORPUSCULAR HGB CONC 31.7 g/dL (33.0-37.0); MEAN PLATELET VOLUME 8.6 fL (7.2-11.7); RBC 4.32 Mil/uL (3.80-5.20); RED CELL DISTRIBUTION WIDTH 14.3 % (11.5-14.5); WHITE BLOOD COUNT 7.6 K/uL (4.8-10.8)
[2018-06-30 06:32] LABS: BLOOD UREA NITROGEN 5 mg/dL (7-17); GFR NON-AFRICAN AMERICAN > 60
[2018-06-30 16:26] VITALS: BP 121/80; PULSE 84; TEMP 97.9; O2SAT 99
--- NOTE | 2018-06-30 17:12 | CP.PCM.DIS ---
Provider - Provider Date of Admission: 06/25/18 21:32 Attending physician: Von Sutherland MD Time Spent in preparation of Discharge (in minutes): 60 Hospital Course - Lab Results Lab Results: Micro Results 06/26/18 16:56 Other: Please Indicate Mycobacterial Culture - Preliminary Most Recent Lab Values WBC 7.6 K/uL (4.8-10.8) 06/30/18 06:04 RBC 4.32 Mil/uL (3.80-5.20) 06/30/18 06:04 Hgb 10.1 g/dL (11.0-16.0) L 06/30/18 06:04 Hct 31.9 % (34.0-47.0) L 06/30/18 06:04 MCV 73.9 fL (81.0-99.0) L 06/30/18 06:04 MCH 23.4 pg (27.0-31.0) L 06/30/18 06:04 MCHC 31.7 g/dL (33.0-37.0) L 06/30/18 06:04 RDW 14.3 % (11.5-14.5) 06/30/18 06:04 Plt Count 348 K/uL (130-400) 06/30/18 06:04 MPV 8.6 fL (7.2-11.7) 06/30/18 06:04 Neut % (Auto) 70.6 % (50.0-75.0) 06/29/18 06:53 Lymph % (Auto) 17.4 % (20.0-40.0) L 06/29/18 06:53 Clinch % (Auto) 9.5 % (0.0-10.0) 06/29/18 06:53 Eos % (Auto) 2.1 % (0.0-4.0) 06/29/18 06:53 Baso % (Auto) 0.4 % (0.0-2.0) 06/29/18 06:53 Neut # (Auto) 6.8 K/uL (1.8-7.0) 06/29/18 06:53 Lymph # (Auto) 1.7 K/uL (1.0-4.3) 06/29/18 06:53 Clinch # (Auto) 0.9 K/uL (0.0-0.8) H 06/29/18 06:53 Eos # (Auto) 0.2 K/uL (0.0-0.7) 06/29/18 06:53 Baso # (Auto) 0.0 K/uL (0.0-0.2) 06/29/18 06:53 Neutrophils % (Manual) 87 % (50-75) H 06/26/18 05:15 Lymphocytes % (Manual) 5 % (20-40) L 06/26/18 05:15 Reactive Lymphs % 2 % (0-0) H 06/26/18 05:15 Monocytes % (Manual) 6 % (0-10) 06/26/18 05:15 Platelet Estimate Normal (NORMAL) 06/26/18 05:15 Anisocytosis (manual) Slight 06/26/18 05:15 Microcytosis (manual) Slight 06/26/18 05:15 PT 12.1 SECONDS (9.7-12.2) 06/25/18 18:38 INR 1.1 06/25/18 18:38 APTT 31 SECONDS (21-34) 06/25/18 18:38 Sodium 134 mmol/L (132-148) 06/30/18 06:04 Potassium 3.7 mmol/L (3.6-5.2) 06/30/18 06:04 Chloride 98 mmol/L (98-107) 06/30/18 06:04 Carbon Dioxide 27 mmol/L (22-30) 06/30/18 06:04 Anion Gap 12 (10-20) 06/30/18 06:04 BUN 5 mg/dL (7-17) L 06/30/18 06:04 Creatinine 0.6 mg/dL (0.7-1.2) L 06/30/18 06:04 Est GFR ( Amer) > 60 06/30/18 06:04 Est GFR (Non-Af Amer) > 60 06/30/18 06:04 POC Glucose (mg/dL) 121 mg/dL (65-110) H 06/26/18 21:11 Random Glucose 85 mg/dL (65-105) 06/30/18 06:04 Calcium 8.0 mg/dl (8.6-10.4) L 06/30/18 06:04 Phosphorus 2.6 mg/dL (2.5-4.5) 06/30/18 06:04 Magnesium 1.7 mg/dL (1.6-2.3) 06/30/18 06:04 Total Bilirubin 0.5 mg/dL (0.2-1.3) 06/25/18 18:38 Direct Bilirubin 0.4 mg/dL (0.0-0.4) 06/25/18 18:38 AST 24 U/L (14-36) 06/25/18 18:38 ALT 12 U/L (9-52) 06/25/18 18:38 Alkaline Phosphatase 131 U/L (38-126) H 06/25/18 18:38 Total Protein 8.1 g/dL (6.3-8.3) 06/25/18 18:38 Albumin 4.6 g/dL (3.5-5.0) 06/25/18 18:38 Globulin 3.5 gm/dL (2.2-3.9) 06/25/18 18:38 Albumin/Globulin Ratio 1.3 (1.0-2.1) 06/25/18 18:38 Lipase 30 U/L (23-300) 06/25/18 18:38 Beta HCG, Quant < 2.39 mIU/ML 06/25/18 18: Urine Color Yellow (YELLOW) 06/25/18 18: Urine Clarity Hazy (Clear) 06/25/18 18:28 Urine pH 7.0 (5.0-8.0) 06/25/18 18:28 Ur Specific [place] 1.027 (1.003-1.030) 06/25/18 18:28 Urine Protein 1+ mg/dL (NEGATIVE) H 06/25/18 18:28 Urine Glucose (UA) Normal mg/dL (Normal) 06/25/18 18:28 Urine Ketones Trace mg/dL (NEGATIVE) 06/25/18 18: Urine Blood Negative (NEGATIVE) 06/25/18 18: Urine Nitrate Negative (NEGATIVE) 06/25/18 18:28 Urine Bilirubin Negative (NEGATIVE) 06/25/18 18:28 Urine Urobilinogen 2.0 mg/dL (0.2-1.0) H 06/25/18 18:28 Ur Leukocyte Esterase Neg [place]/uL (Negative) 01/18/19 18:28 Urine WBC (Auto) 2 /hpf (0-5) 06/25/18 18:28 Urine RBC (Auto) 1 /hpf (0-3) 06/25/18 18:28 Ur Squamous Epith Cells 9 /hpf (0-5) H 06/25/18 18:28 Urine Bacteria Rare (<OCC) 06/25/18 18:28 Urine HCG, Qual Negative (NEGATIVE) 06/26/18 12:43 RPR Nonreactive (NONREACTIVE) 06/26/18 16:56 Hepatitis A IgM Ab Negative (NEGATIVE) 06/26/18 16:56 Hep Bs Antigen Negative (NEGATIVE) 06/26/18 16:56 Hep B Core IgM Ab Negative (NEGATIVE) 06/26/18 16:56 Hepatitis C Antibody Negative (NEGATIVE) 06/26/18 16:56 HIV 1&2 Ag/Ab, 4th Gen Nonreactive (Nonreactive) 06/26/18 16:56 HIV 1&2 Antibody Screen Negative (NEGATIVE) 06/26/18 16:56 - Hospital Course Hospital Course: 28 year old female with no significant past medical history presented to [facility] emergency department on 06/25/18 with right lower quadrant abdominal pain. Further work up was done including a CT scan showing appendicitis. Patient was admitted under Dr. Sutherland's surgical service and proceeded to the operating room for a laparoscopic appendectomy on 06/26/18. Patient tolerated the procedure with no post-operative complications and was taken to PACU. On the floors, patient had an unremarkable hospital course, however due to the severity of the appendicitis she received intravenous antibiotics. Patient tolerating diet and ambulating without difficulty. Pain was well controlled. Patient to follow-up wi bryanna Sutherland in 2 weeks. Above is a brief summary of hospital course. For detailed record please refer to medical records. Discharge Exam - Head Exam Head Exam: ATRAUMATIC, NORMOCEPHALIC - Eye Exam Eye Exam: EOMI - ENT Exam ENT Exam: Mucous Membranes Moist - Respiratory Exam Respiratory Exam: NORMAL BREATHING PATTERN. absent: Respiratory Distress - Cardiovascular Exam Cardiovascular Exam: REGULAR RHYTHM. absent: Tachycardia - GI/Abdominal Exam GI & Abdominal Exam: Normal Bowel Sounds, Soft, Tenderness. absent: Distended, Guarding, Rebound - Neurological Exam Neurological exam: Alert, Oriented x3 - Psychiatric Exam Psychiatric exam: Normal Affect, Normal Mood - Skin Skin Exam: Dry, Intact, Normal Color, Warm Discharge Plan - Discharge Medications Prescriptions: Ciprofloxacin [Cipro] 500 mg PO Q12H 7 Days tab Docusate [Colace] 100 mg PO DAILY PRN #30 cap PRN Reason: Constipation metroNIDAZOLE [Flagyl] 500 mg PO Q6H 7 Days tab oxyCODONE/Acetaminophen [Percocet 5/325 mg Tab] 1 tab PO Q6H PRN #10 tab PRN Reason: Pain, Moderate (4-7) - Follow Up Plan Condition: STABLE Disposition: HOME/ ROUTINE Instructions: Ciprofloxacin (Systemic), Appendicitis, Adult (DC), Metronidazole (Systemic), Docusate, Oxycodone and Acetaminophen, Appendectomy, Laparoscopic Surgery (DC) Additional Instructions: Please follow up with your surgeon Dr. Sutherland in 1-2 weeks. Please resume any and all home medications. Please take medications prescribed to you. Please resume regular diet as tolerated. Activity as tolerated, no heavy lifting for 4 weeks. Ok to shower. Please refrain from pools, baths, or other large bodies of water for 2 weeks. If symptoms worsen, please return to the ED. Referrals: Von Sutherland MD [Staff Provider] -
== END 2018-06-30 16:51 | disposition home or self-care (01) | DRG 343 ==
LOC: C.ER 17:45 → C.9E 21:32 → C.3T 06-26 07:29
PROVIDERS: ADMIT Surgery; ATTEND Surgery
PROC: 0DTJ4ZZ Resection of Appendix, Percutaneous Endoscopic Approach (ICD-10-PCS; principal; 2018-06-26 10:00)
PROC: 0WQF0ZZ Repair Abdominal Wall, Open Approach (ICD-10-PCS; 2018-06-26 10:00)
DX: K35.80 Unspecified acute appendicitis (principal); K42.9 Umbilical hernia without obstruction or gangrene

== ENCOUNTER 2018-09-10 13:40 | Emergency (ER) | payer SELFPAY ==
[2018-09-10 13:41] VITALS: BMI 31.1
[2018-09-10 14:04] VITALS: BP 121/73; PULSE 77; RESP 18; TEMP 98.2; O2SAT 99
[2018-09-10] MEDS ORDERED: Tetracaine 0.5% Ophth 2 ML BOTTLE OU STA (14:20)
[2018-09-10] MEDS ORDERED: Fluorescein 1 mg Ophthalmic Strip OU ONE (14:21)
[2018-09-10] MEDS ORDERED: Fluorescein 1 mg Ophthalmic Strip ONE (14:26)
[2018-09-10] MEDS ORDERED: Tetracaine 0.5% Ophth (OR ONLY) ONE (14:27)
--- NOTE | 2018-09-10 14:46 | C.PDOC ---
History Of Present Illness 28 y/o female pt presents to the ER c/o eye pain x3 days. Associated sx includes photophobia and tearing b/l eyes. Pt reports she was able to take off her contacts last night, but her eye is still in pain. Pt denies vision change. Chief Complaint (Nursing): Eye Problem History Per: Patient History/Exam Limitations: no limitations Onset/Duration Of Symptoms: Days (x3) Current Symptoms Are (Timing): Still Present Past Medical History Reviewed: Historical Data, Nursing Documentation, Vital Signs Vital Signs: Last Vital Signs Temp 98.2 F 09/10/18 14:03 Pulse 77 09/10/18 14:03 Resp 18 09/10/18 14:03 BP 121/73 09/10/18 14:03 Pulse Ox 99 09/10/18 14:03 Surgical History: Appendectomy - [facility] Procedures BARTHOLIN GLAND MARSUP (11/14/14) INCISE BARTHOLIN'S GLAND (11/11/14) REPAIR ABDOMINAL WALL, OPEN APPROACH (06/25/18) RESECTION OF APPENDIX, PERCUTANEOUS ENDOSCOPIC APPROACH (06/25/18) TETANUS TOXOID ADMINIST (10/07/13) Family History: States: Unknown Family Hx - Social History Hx Tobacco Use: No Hx Alcohol Use: No Hx Substance Use: No - Immunization History Hx Tetanus Toxoid Vaccination: No Hx Influenza Vaccination: No Hx Pneumococcal Vaccination: No Review Of Systems Eyes: Positive for: Pain, Other (photophobia and tearing in b/l eyes ). Negative for: Vision Change Physical Exam - Physical Exam Appears: Non-toxic, No Acute Distress Skin: Warm, Dry Head: Normacephalic Eye(s): bilateral: Normal Inspection, PERRL, EOMI Cardiovascular: Rhythm Regular Respiratory: Normal Breath Sounds, No Accessory Muscle Use Neurological/Psych: Oriented x3, Normal Speech ED Course And Treatment O2 Sat by Pulse Oximetry: 99 (RA) Pulse Ox Interpretation: Normal Medical Decision Making Medical Decision Making: plans: -- Fluoresceine -- Tetracaine Eye exam preformed, no scratch noted. Pt advised to place cold compress on eyes and use artificial tears. Patient verbalizes understanding and is in agreement with plan. Patient is stable for discharge. Disposition Counseled Patient/Family Regarding: Diagnosis, Need For Followup, Rx Given - Disposition Referrals: [facility] [Outside] Disposition: HOME/ ROUTINE Disposition Time: 14:59 Condition: STABLE Additional Instructions: Follow up with Ophtho in 1-2 days Take meds as instructed return to ED if symptoms worsen Prescriptions: Propylene Glycol/Peg 400 [Systane Gel Eye Drops] 1 drop OU BID #1 bottle Tobramycin/Dexamethasone [Tobradex Eye Ointment] 1 in OU BID #1 tube Instructions: Dry Eye Forms: [employer] (German) - Clinical Impression Clinical Impression: Pain in eye, Dry eye syndrome of both eyes - PA / [employer] / Resident Statement MD/DO has reviewed & agrees with the documentation as recorded. - Scribe Statement The provider has reviewed the documentation as recorded by the [place] Do All medical record entries made by the Scribe were at my direction and personally dictated by me. I have reviewed the chart and agree that the record accurately reflects my personal performance of the history, physical exam, medical decision making, and the department course for this patient. I have also personally directed, reviewed, and agree with the discharge instructions and disposition.
== END 2018-09-10 15:08 | disposition home or self-care (01) ==
LOC: C.ER 13:40
DX: H04.123 Dry eye syndrome of bilateral lacrimal glands (principal); H57.10 Ocular pain, unspecified eye